=== PATIENT | female | born 1975 | race Caucasian/White ===

== ENCOUNTER 2021-06-07 14:24 | Emergency (ER) | payer BC ==
[2021-06-07] MEDS ORDERED: Sodium Chloride 0.9% 2.5 ML Syringe FLUSH PRN (14:56)
[2021-06-07] MEDS ORDERED: Sodium Chloride 0.9% 10 ML Syringe FLUSH PRN (14:56)
[2021-06-07] MEDS ORDERED: HYDROmorphone 2 MG/ML Syringe IVPUSH ONE ×2 (15:37→19:42)
[2021-06-07] MEDS ORDERED: Ondansetron 4 MG/2 ML SDV IVPUSH ONE (15:38)
[2021-06-07 16:03] LABS: BLOOD UREA NITROGEN,BUN 17 mg/dL (7.0-18.0); CARBON DIOXIDE,CO2 27.5 mmol/L (21.0-32.0); CHLORIDE,CL 101 mmol/L (98-107); GLUCOSE RANDOM 96 mg/dL (74-106); LIPASE 122 U/L (73-393); POTASSIUM,K 3.7 mmol/L (3.5-5.1); SODIUM,NA 137 mmol/L (136-145)
[2021-06-07] MEDS ORDERED: Ketorolac 30 MG/ML SDV IVPUSH ONE (16:52)
--- NOTE | 2021-06-07 16:52 | EDM.PDOC ---
ED HPI GENERAL MEDICAL PROBLEM - General Chief Complaint: Abdominal Pain Stated Complaint: REFERRED FROM THE CLINIC Time Seen by Provider: 06/07/21 14:28 Source of Information: Reports: Patient History Limitations: Reports: No Limitations - History of Present Illness INITIAL COMMENTS - FREE TEXT/NARRATIVE: HISTORY AND PHYSICAL: History of present illness: Patient is a 45-year-old female who presents emergency room today with concern of sudden onset of right lower quadrant abdominal pain starting this morning. Patient states that the pain is coming in waves and is a crampy-like sensation. Patient states she has no other associated symptoms. Patient states that she has a history of partial hysterectomy so states that she is not and does not have menstrual cycles. Patient states that she had a history of cervical cancer 10 years ago which is why she had the hysterectomy. Patient denies any other abdominal surgeries. Patient states that she has not taken anything for her symptoms denies any other associated symptoms. Patient denies fever, chills, chest pain, shortness of breath, or cough. Denies headache, neck stiff ness, change in vision, syncope, or near syncope. Denies nausea, vomiting, diarrhea, constipation, or dysuria. Has not noted any blood in urine or stool. Patient has been eating and drinking appropriately. Review of systems: As per history of present illness and below otherwise all systems reviewed and negative. Past medical history: As per history of present illness and as reviewed below otherwise noncontributory. Surgical history: As per history of present illness and as reviewed below otherwise noncontributory. Social history: See social history for further information Family history: As per history of present illness and as reviewed below otherwise noncontributory. Physical exam: General: Patient is alert, oriented, and in no acute distress. Patient laying on exam table, appearing mild to moderately uncomfortable holding her right lower abdomen. HEENT: Atraumatic, normocephalic, pupils equal and reactive bilaterally, negative for conjunctival pallor or scleral icterus, mucous membranes moist, throat clear, neck supple, nontender, trachea midline. No drooling or trismus noted. No meningeal signs. No hot potato voice noted. Lungs: Clear to auscultation, breath sounds equal bilaterally, chest nontender. Heart: S1S2, regular rate and rhythm without overt murmur Abdomen: Soft, nondistended, moderate RLQ tenderness without guarding. Negative for masses or hepatosplenomegaly. Negative for costovertebral tenderness. Pelvis: Stable nontender. Genitourinary: Deferred. Rectal: Deferred. Skin: Intact, warm, dry. No lesions or rashes noted. Extremities: Atraumatic, negative for cords or calf pain. Neurovascular unremarkable. Neuro: Awake, alert, oriented. Cranial nerves II through XII unremarkable. Cerebellum unremarkable. Motor and sensory unremarkable throughout. Exam nonfocal. Medical Decision Making: Patient is a 45-year-old female, with a prior history of cervical cancer status post partial hysterectomy, who presents emergency room today with concern of right lower abdominal pain since this morning. Upon arrival to the ED, patient is laying on exam table but is appearing mild to moderately uncomfortable holding her right lower abdomen. Patient does have moderate tenderness to palpation of her right lower abdomen exam is otherwise unremarkable. Will obtain basic lab work, abdominal pelvic CT scan, provide therapeutics and reassess patient. Mild derangements of CBC and CMP are unremarkable. hCG is negative. Lipase is within normal limits. Urinalysis is clear. Abdominal pelvic CT scan shows multiple intrarenal calculi bilaterally likely representing renal tubular ectasia. However, there is no evidence of current or recent obstructive uropathy on either side. The appendix is well seen and appears normal. Cystic or complex cystic right adnexal mass measuring 6.1 x 3 x 2.6 cm. This could be tubal or ovarian origin. Sonography is recommended with Doppler for further evaluation. Endovaginal ultrasound shows that the right ovary is enlarged as a result of 2 small cystic lesions, though right ovarian blood flow remains intact. The smaller cystic lesion appears mildly . Recommend pelvic ultrasound in 6 to 12 weeks to evaluate stability. Unremarkable left ovary. Uterus surgically absent. Upon reevaluation of patient, she does have continued significant pain of her right lower abdomen. I did call and speak to the RECOATING MACHINE OPERATOR provider on-call, Dr. Fernandez. He would like patient sent home with the pain medication and close follow-up in the clinic for further evaluation and management. Strict return precautions thoroughly discussed with patient. Discussed the importance of close follow-up with an RECOATING MACHINE OPERATOR provider and her primary care provider. All incidental findings of imaging today discussed with patient have this followed up with her primary care provider. Voices understanding and is agreeable to plan of care. Denies any further questions or concerns at this time. Diagnostics: CBC, CMP, lipase, hCG, urinalysis, abdominal pelvic CT with and without contrast Therapeutics: Zofrattila, Dilaudid Prescription: Percocet (#15) Impression: Right ovarian cyst Plan: 1. You can alternate ibuprofen and Tylenol as directed for pain and discomfort. Take medication as prescribed. Caution when taking Percocet as this medication does cause drowsiness and sedation. Do not take this medication operate any heavy equipment or drive a vehicle while on this medication. Note that Percocet also has Tylenol combo so caution when taking any additional Tylenol dosing. 2. Follow-up with a women's health care provider, Dr. Fernandez and primary care provider as discussed. Return to the ED as needed and as discussed. Definitive disposition and diagnosis as appropriate pending reevaluation and review of above. Abdomen Pain Score (Numeric/FACES): 8 - Related Data Allergies Allergy/AdvReac Type Severity Reaction Status Date / Time Sulfa (Sulfonamide Allergy Cannot Verified 06/07/21 14:33 Antibiotics) Remember Home Meds: Home Meds Acetaminophen/oxyCODONE [Percocet 325-5 MG] 1 each PO Q6H PRN #15 tab 06/07/21 [Rx] Citalopram Hydrobromide [Celexa] 20 mg PO ONETIME 06/07/21 [History] Doxycycline [Vibramycin] 50 mg PO ONETIME 06/07/21 [History] Furosemide [Lasix Oral Soln] 20 mg PO ONETIME 06/07/21 [History] Levothyroxine Sodium [Synthroid] 125 mcg PO ONETIME 06/07/21 [History] Montelukast [Singulair] 10 mg PO DAILY 06/07/21 [History] Spironolactone [Aldactone] 50 mg PO DAILY 06/07/21 [History] Past Medical History Respiratory History: Reports: Asthma RECOATING MACHINE OPERATOR History: Reports: Endocrine/Metabolic History: Reports: Hypothyroidism Oncologic (Cancer) History: Reports: Cervix Dermatologic History: Reports: Other (See Below) Other Dermatologic History: Acne - Infectious Disease History Infectious Disease History: Reports: Mononucleosis Social & Family History - Family History Oncologic: Reports: Other (See Below) Other Oncologic Family History: Pt unsure of CA type, family hx of cancer - Caffeine Use Caffeine Use: Reports: Coffee - Recreational Drug Use Recreational Drug Use: No ED ROS GENERAL - Review of Systems Review Of Systems: Comprehensive ROS is negative, except as noted in HPI. ED EXAM, GENERAL - Physical Exam Exam: See Below (see dictation) Course - Vital Signs Last Recorded V/S: Last Vital Signs Temp 96.9 F 06/07/21 14:37 Pulse 72 06/07/21 18:24 Resp 16 06/07/21 15:32 BP 108/70 06/07/21 19:13 Pulse Ox 99 06/07/21 18:24 - Orders/Labs/Meds Orders: Active Orders 24 hr Category Date Time Status Sodium Chloride 0.9% [Saline Flush] Med 06/07/21 14:56 Active 10 ml FLUSH ASDIRECTED PRN Sodium Chloride 0.9% [Saline Flush] Med 06/07/21 14:56 Active 2.5 ml FLUSH ASDIRECTED PRN Saline Lock Insert [OM.PC] Stat Oth 06/07/21 14:56 Ordered Medication Orders Sodium Chloride (Sodium Chloride 0.9% 10 Ml Syringe) 10 ml FLUSH ASDIRECTED PRN PRN Reason: Keep Vein Open Last Admin: 06/07/21 16:14 Dose: 10 ml Documented by: RICHARDSON Sodium Chloride (Sodium Chloride 0.9% 2.5 Ml Syringe) 2.5 ml FLUSH ASDIRECTED PRN PRN Reason: Keep Vein Open Last Admin: 06/07/21 16:14 Dose: 2.5 ml Documented by: RICHARDSON Labs: Laboratory Tests 06/07/21 06/07/21 06/07/21 Range/Units 15:20 15:27 15:27 WBC 7.27 (4.0-11.0) K/uL RBC 4.32 (4.30-5.90) M/uL Hgb 13.7 (12.0-16.0) g/dL Hct 39.7 (36.0-46.0) % MCV 91.9 (80.0-98.0) fL MCH 31.7 (27.0-32.0) pg MCHC 34.5 (31.0-37.0) g/dL RDW Std Deviation 42.7 (28.0-62.0) fl RDW Coeff of Nancy 13 (11.0-15.0) % Plt Count 251 (150-400) K/uL MPV 9.70 (7.40-12.00) fL Neut % (Auto) 68.9 (48.0-80.0) % Lymph % (Auto) 20.2 (16.0-40.0) % [place] % (Auto) 9.9 (0.0-15.0) % Eos % (Auto) 0.7 (0.0-7.0) % Baso % (Auto) 0.3 (0.0-1.5) % Neut # (Auto) 5.0 (1.4-5.7) K/uL Lymph # (Auto) 1.5 (0.6-2.4) K/uL [place] # (Auto) 0.7 (0.0-0.8) K/uL Eos # (Auto) 0.1 (0.0-0.7) K/uL Baso # (Auto) 0.0 (0.0-0.1) K/uL Nucleated RBC % 0.0 /100WBC Nucleated RBCs # 0 K/uL Sodium 137 (136-145) mmol/L Potassium 3.7 (3.5-5.1) mmol/L Chloride 101 (98-107) mmol/L Carbon Dioxide 27.5 (21.0-32.0) mmol/L BUN 17 (7.0-18.0) mg/dL Creatinine 0.9 (0.6-1.0) mg/dL Est Cr Clr Drug Dosing 65.69 mL/min Estimated GFR (MDRD) > 60.0 ml/min Glucose 96 (74-106) mg/dL Calcium 8.4 L (8.5-10.1) mg/dL Total Bilirubin 0.4 (0.2-1.0) mg/dL AST 18 (15-37) IU/L ALT 30 (14-63) IU/L Alkaline Phosphatase 85 (46-116) U/L Total Protein 7.1 (6.4-8.2) g/dL Albumin 4.0 (3.4-5.0) g/dL Globulin 3.1 (2.6-4.0) g/dL Albumin/Globulin Ratio 1.3 (0.9-1.6) Lipase 122 (73-393) U/L HCG, Qual (NEG) Urine Color YELLOW Urine Appearance CLEAR Urine pH 6.0 (5.0-8.0) Ur Specific [place] >= 1.030 (1.001-1.035) Urine Protein NEGATIVE (NEGATIVE) mg/dL Urine Glucose (UA) NEGATIVE (NEGATIVE) mg/dL Urine Ketones NEGATIVE (NEGATIVE) mg/dL Urine Occult Blood NEGATIVE (NEGATIVE) Urine Nitrite NEGATIVE (NEGATIVE) Urine Bilirubin SMALL H (NEGATIVE) Urine Urobilinogen 0.2 (<2.0) EU/dL Ur Leukocyte Esterase NEGATIVE (NEGATIVE) 06/07/21 Range/Units 15:27 WBC (4.0-11.0) K/uL RBC (4.30-5.90) M/uL Hgb (12.0-16.0) g/dL Hct (36.0-46.0) % MCV (80.0-98.0) fL MCH (27.0-32.0) pg MCHC (31.0-37.0) g/dL RDW Std Deviation (28.0-62.0) fl RDW Coeff of Nancy (11.0-15.0) % Plt Count (150-400) K/uL MPV (7.40-12.00) fL Neut % (Auto) (48.0-80.0) % Lymph % (Auto) (16.0-40.0) % [place] % (Auto) (0.0-15.0) % Eos % (Auto) (0.0-7.0) % Baso % (Auto) (0.0-1.5) % Neut # (Auto) (1.4-5.7) K/uL Lymph # (Auto) (0.6-2.4) K/uL [place] # (Auto) (0.0-0.8) K/uL Eos # (Auto) (0.0-0.7) K/uL Baso # (Auto) (0.0-0.1) K/uL Nucleated RBC % /100WBC Nucleated RBCs # K/uL Sodium (136-145) mmol/L Potassium (3.5-5.1) mmol/L Chloride (98-107) mmol/L Carbon Dioxide (21.0-32.0) mmol/L BUN (7.0-18.0) mg/dL Creatinine (0.6-1.0) mg/dL Est Cr Clr Drug Dosing mL/min Estimated GFR (MDRD) ml/min Glucose (74-106) mg/dL Calcium (8.5-10.1) mg/dL Total Bilirubin (0.2-1.0) mg/dL AST (15-37) IU/L ALT (14-63) IU/L Alkaline Phosphatase (46-116) U/L Total Protein (6.4-8.2) g/dL Albumin (3.4-5.0) g/dL Globulin (2.6-4.0) g/dL Albumin/Globulin Ratio (0.9-1.6) Lipase (73-393) U/L HCG, Qual NEGATIVE (NEG) Urine Color Urine Appearance Urine pH (5.0-8.0) Ur Specific [place] (1.001-1.035) Urine Protein (NEGATIVE) mg/dL Urine Glucose (UA) (NEGATIVE) mg/dL Urine Ketones (NEGATIVE) mg/dL Urine Occult Blood (NEGATIVE) Urine Nitrite (NEGATIVE) Urine Bilirubin (NEGATIVE) Urine Urobilinogen (<2.0) EU/dL Ur Leukocyte Esterase (NEGATIVE) Meds: Medications Generic Name Dose Route Start Last Admin Trade Name Catrina PRN Reason Stop Dose Admin Sodium Chloride 10 ml 06/07/21 14:56 06/07/21 16:14 Sodium Chloride 0.9% 10 Ml Syringe FLUSH 10 ml ASDIRECTED PRN Administration Keep Vein Open Sodium Chloride 2.5 ml 06/07/21 14:56 06/07/21 16:14 Sodium Chloride 0.9% 2.5 Ml Syringe FLUSH 2.5 ml ASDIRECTED PRN Administration Keep Vein Open Discontinued Medications Generic Name Dose Route Start Last Admin Trade Name Catrina PRN Reason Stop Dose Admin Hydromorphone HCl 0.5 mg 06/07/21 15:37 06/07/21 16:12 Hydromorphone 2 Mg/Ml Syringe IVPUSH 06/07/21 15:38 0.5 mg ONETIME ONE Administration Hydromorphone HCl 0.5 mg 06/07/21 19:42 Hydromorphone 2 Mg/Ml Syringe IVPUSH 06/07/21 19:43 ONETIME ONE Iopamidol 100 ml 06/07/21 17:09 06/07/21 17:10 Iopamidol 755 Mg/Ml 500 Ml Multipack Bottle IVPUSH 06/07/21 17:10 100 ml ONETIME STA Administration Ketorolac Tromethamine 30 mg 06/07/21 16:52 06/07/21 17:07 Ketorolac 30 Mg/Ml Sdv IVPUSH 06/07/21 16:53 30 mg ONETIME ONE Administration Ondansetron HCl 4 mg 06/07/21 15:38 06/07/21 16:12 Ondansetron 4 Mg/2 Ml Sdv IVPUSH 06/07/21 15:39 4 mg ONETIME ONE Administration Departure - Departure Time of Disposition: 19:29 Disposition: Home, Self-Care 01 Clinical Impression: Ovarian cyst - Discharge Information Prescriptions: Acetaminophen/oxyCODONE [Percocet 325-5 MG] 1 each PO Q6H PRN #15 tab PRN Reason: Pain (Severe 7-10) Instructions: Ovarian Cyst, [id number] Referrals: PCP,None [Primary Care Provider] - Forms: ED Department Discharge Additional Instructions: The following information is given to patients seen in the emergency department who are being discharged to home. This information is to outline your options for follow-up care. We provide all patients seen in our emergency department with a follow-up referral. The need for follow-up, as well as the timing and circumstances, are variable depending upon the specifics of your emergency department visit. If you don't have a primary care physician on staff, we will provide you with a referral. We always advise you to contact your personal physician following an emergency department visit to inform them of the circumstance of the visit and for follow-up with them and/or the need for any referrals to a consulting specialist. The emergency department will also refer you to a specialist when appropriate. This referral assures that you have the opportunity for follow-up care with a specialist. All of these measure are taken in an effort to provide you with optimal care, which includes your follow-up. Under all circumstances we always encourage you to contact your private physician who remains a resource for coordinating your care. When calling for follow-up care, please make the office aware that this follow-up is from your recent emergency room visit. If for any reason you are refused follow-up, please contact the [facility] Emergency Department at and asked to speak to the emergency department charge nurse. [facility] [address] [place] [address] [facility] [address] [place] [address] [facility], Dr. Emiliana Fernandez [address] [place] [address] 1. You can alternate ibuprofen and Tylenol as directed for pain and discomfort. Take medication as prescribed. Caution when taking Percocet as this medication does cause drowsiness and sedation. Do not take this medication operate any heavy equipment or drive a vehicle while on this medication. Note that Percocet also has Tylenol combo so caution when taking any additional Tylenol dosing. 2. Follow-up with a women's health care provider, Dr. Fernandez and primary care provider as discussed. Return to the ED as needed and as discussed. Sepsis Event Note (ED) - Evaluation Sepsis Screening Result: No Definite Risk - Focused Exam Vital Signs: Vital Signs Temp Pulse Resp BP Pulse Ox 06/07/21 19:13 108/70 06/07/21 18:24 72 99/61 99 06/07/21 17:00 68 101/66 97 06/07/21 15:32 81 16 100/69 100 06/07/21 14:37 96.9 F 78 16 113/71 100 - My Orders Last 24 Hours: My Active Orders 06/07/21 14:56 Sodium Chloride 0.9% [Saline Flush] 10 ml FLUSH ASDIRECTED PRN Sodium Chloride 0.9% [Saline Flush] 2.5 ml FLUSH ASDIRECTED PRN Saline Lock Insert [OM.PC] Stat - Assessment/Plan Last 24 Hours: My Active Orders 06/07/21 14:56 Sodium Chloride 0.9% [Saline Flush] 10 ml FLUSH ASDIRECTED PRN Sodium Chloride 0.9% [Saline Flush] 2.5 ml FLUSH ASDIRECTED PRN Saline Lock Insert [OM.PC] Stat
[2021-06-07] MEDS ORDERED: Iopamidol 755 MG/ML 500 ML Multipack Bottle IVPUSH STA (17:09)
--- NOTE | 2021-06-07 17:18 | CT ---
INDICATION: Right lower quadrant pain. COMPARISON: There are no prior studies for comparison TECHNIQUE: CT examination of the abdomen and pelvis was performed before and after the uneventful intravenous administration of 100 cc of Isovue 370. Thin section axial images were obtained from the lung bases through the pubic symphysis. Oral contrast was not administered. Sagittal and coronal reformatted imaging was performed Please note that all CT scans at this facility use dose modulation, iterative reconstruction, and/or weight-based dosing when appropriate to reduce radiation dose to as low as reasonably achievable. FINDINGS: LUNG BASES: The lung bases as visualized appear normal.The heart size is normal at the lung bases. LIVER/BILIARY SYSTEM:The liver is normal in size and configuration. There is no focal mass and there is no intra- or extra hepatic biliary ductal dilatation.There is focal fat at the false form ligament. The gallbladder appears normal ADRENALS: Normal KIDNEYS, URETERS and BLADDER:Numerous intrarenal calculi bilaterally. User in the 1-3 millimeter range and probably due to renal tubular ectasia. However, there is no finding of current or recent obstructive uropathy. No mass. The bladder appears normal SPLEEN:Normal appearance. PANCREAS: Appears normal. RETROPERITONEUM and MESENTERY: There is no mass, adenopathy or aortic aneurysm. GASTROINTESTINAL SYSTEM: There is no evidence of diverticulitis, colitis, mechanical obstruction, or appendicitis. The small bowel as visualized appears normal.The appendix is seen on coronal and sagittal imaging deep within the pelvis and appears normal. PELVIS: I question a right adnexal abnormality. Imaging is difficult due to paucity of fat planes and adjacent bowel loops. However, this is best seen on series 301, image 135 in series 3 of 3, image 55 measuring about 6.1 x 3.0 by 2.6 centimeters. This could be ovarian or perhaps 2 in origin. Sonography should be considered for further evaluation. OSSEOUS STRUCTURES and ABDOMINAL WALL: There is an age-appropriate appearance of the osseous structures.No significant abdominal wall defect. OTHER: No free fluid or free air. IMPRESSION: 1. Multiple intrarenal calculi bilaterally likely representing renal tubular ectasia. However, there is no evidence of current or recent obstructive uropathy on either side. 2. The appendix is well seen and appears normal. 3. Probable cystic or complex cystic right adnexal mass measuring 6.1 x 3.0 x 2.6 centimeters. This could be tubal or ovarian in origin. Sonography is recommended with Doppler for further evaluation. Please note that all CT scans at this facility use dose modulation, iterative reconstruction, and/or weight-based dosing when appropriate to reduce radiation dose to as low as reasonably achievable. Dictated by Charles Almanzar MD @ 06/07/2021 5:17:30 PM (Electronically Signed)
--- NOTE | 2021-06-07 19:15 | US ---
INDICATION: Right adnexal/lower abdominal pain. Abnormal CT scan. TECHNIQUE: Transabdominal and endovaginal pelvic ultrasound. COMPARISON: Same date CT abdomen/pelvis. FINDINGS: The uterus is surgically absent. Right ovary is enlarged measuring 6.1 x 3.9 x 3.0 cm. Right ovary demonstrates intact arterial and venous blood flow. Right ovarian anechoic cyst measuring 2.6 x 2.5 x 2.3 cm without apparent internal complexity. Right ovarian anechoic cystic lesion measuring 1.9 x 1.8 x 1.8 cm, potentially containing a few thin echogenic septations Left ovary measures 3.0 x 2.0 x 2.5 cm. Left ovary demonstrates intact arterial and venous blood flow. No suspicious left ovarian/adnexal lesion identified. Trace pelvic free fluid. IMPRESSION: 1. Right ovary is enlarged as result of 2 small cystic lesions, though right ovarian blood flow remains intact. The smaller cystic lesion appears mildly septated. Recommend repeat pelvic ultrasound in 6-12 weeks to evaluate stability. 2. Unremarkable left ovary. 3. Uterus surgically absent. Dictated by Krishna Maradiaga MD @ 06/07/2021 7:12:56 PM Dictated by: Krishna Maradiaga MD @ 06/07/2021 19:13:03 (Electronically Signed)
== END 2021-06-07 20:15 | disposition home or self-care (01) ==
LOC: MW.ED 14:24
DX: N83.201 Unspecified ovarian cyst, right side (principal); E03.9 Hypothyroidism, unspecified; Z88.2 Allergy status to sulfonamides; Z79.899 Other long term (current) drug therapy
CPT/HCPCS: 36415; 74178; 76830; 80053; 81003; 83690; 84703; 85025; 96374; 96375; 99284; J1170; J1885; J2405; Q9967

== ENCOUNTER 2021-10-26 18:49 | Emergency (ER) | payer BC ==
[2021-10-26 21:49] LABS: BLOOD UREA NITROGEN,BUN 15 mg/dL (7.0-18.0); CARBON DIOXIDE,CO2 26.7 mmol/L (21.0-32.0); CHLORIDE,CL 104 mmol/L (98-107); GLUCOSE RANDOM 83 mg/dL (74-106); SODIUM,NA 141 mmol/L (136-145)
== END 2021-10-26 22:31 | disposition home or self-care (01) ==
LOC: MW.ED 18:49
DX: R55 Syncope and collapse (principal); E05.90 Thyrotoxicosis, unspecified without thyrotoxic crisis or storm; Z79.899 Other long term (current) drug therapy; Z88.2 Allergy status to sulfonamides; Z88.1 Allergy status to other antibiotic agents
CPT/HCPCS: 36415; 71045; 71045-26; 80053; 80305-QW; 80307; 81003; 83605; 84439; 84443; 84484; 84703; 85025; 85610; 93005; 99284-25

== ENCOUNTER 2024-02-10 12:02 | Emergency (ER) | payer BC ==
[2024-02-10 14:07] LABS: CORONAVIRUS COVID-19 NAA POSITIVE (NEGATIVE); INFLUENZA A NAA NEGATIVE (NEGATIVE); INFLUENZA B NAA NEGATIVE (NEGATIVE); RESPIRATORY SYNCYTIAL VIR NAA NEGATIVE (NEGATIVE)
[2024-02-10 15:10] LABS: BASOPHILS ABSOLUTE AUTO 0.02 K/uL (0.00-0.20); BASOPHILS PERCENT AUTO 0.4 % (0.0-1.0); EOSINOPHILS ABSOLUTE AUTO 0.13 K/uL (0.00-0.45); EOSINOPHILS PERCENT AUTO 2.5 % (0.0-6.0); HEMATOCRIT 37.4 % (37.0-47.0); HEMOGLOBIN 12.8 g/dL (12.0-16.0); IMMATURE GRAN ABSOLUTE AUTO 0.04 K/uL (0.00-0.05); IMMATURE GRAN PERCENT AUTO 0.8 % (0.0-0.4); LYMPHOCYTES ABSOLUTE AUTO 1.46 K/uL (1.00-4.80); LYMPHOCYTES PERCENT AUTO 28.5 % (24.0-44.0); MEAN CORPUSCULAR HEMOGLOBIN 31.7 pg (28.0-32.0); MEAN CORPUSCULAR HGB CONC 34.2 g/dL (32.0-36.0); MEAN CORPUSCULAR VOLUME 92.6 fL (83.0-99.0); MEAN PLATELET VOLUME 9.5 fL (9.4-12.3); MONOCYTES ABSOLUTE AUTO 0.95 K/uL (0.00-0.80); MONOCYTES PERCENT AUTO 18.6 % (0.0-8.0); NEUTROPHILS ABSOLUTE AUTO 2.52 K/uL (1.80-7.70); NEUTROPHILS PERCENT AUTO 49.2 % (41.0-71.0); PLATELET COUNT,PLT 167 K/uL (150-400); RED BLOOD CELL COUNT 4.04 M/uL (4.10-5.30); WHITE BLOOD CELL COUNT,WBC 5.12 K/uL (3.9-11.3)
[2024-02-10] MEDS: Codeine/Promethazine 10-6.25 MG/5 ML Syrup 5 ML UD Syringe PO STA (15:16)
[2024-02-10 16:51] LABS: A/G RATIO 1.1 (0.9-1.6); ALANINE AMINOTRANSFERASE,ALT 26 IU/L (14-63); ALBUMIN 3.5 g/dL (3.4-5.0); ALKALINE PHOSPHATASE 100 U/L (46-116); ASPARTATE AMNIOTRANSFERASE,AST 21 IU/L (15-37); BILIRUBIN TOTAL 0.4 mg/dL (0.2-1.0); BLOOD UREA NITROGEN,BUN 10 mg/dL (7.0-18.0); CALCIUM 8.7 mg/dL (8.5-10.1); CARBON DIOXIDE,CO2 33.1 mmol/L (21.0-32.0); CHLORIDE,CL 104 mmol/L (98-107); CREATININE 0.8 mg/dL (0.6-1.0); EST CRCL DRUG DOSING (CG) 71.91 mL/min; ESTIMATED GFR 91 mL/min (>60); GLUCOSE RANDOM 90 mg/dL (74-106); POTASSIUM,K 3.7 mmol/L (3.5-5.1); PROTEIN TOTAL,TP 6.8 g/dL (6.4-8.2); SODIUM,NA 144 mmol/L (136-145); TSH ULTRASENSITIVE 1.38 uIU/mL (0.36-3.74)
== END 2024-02-10 17:18 | disposition home or self-care (01) ==
LOC: MW.ED 12:02
DX: U07.1 COVID-19 (principal); J45.909 Unspecified asthma, uncomplicated; E03.9 Hypothyroidism, unspecified; Z79.899 Other long term (current) drug therapy; Z88.2 Allergy status to sulfonamides; Z75.8 Other problems related to medical facilities and other health care
CPT/HCPCS: 0241U; 36415; 71045; 80053; 84443; 84484; 85025; 93005; 99285; 93010; 99283; J3490